=== PATIENT | female | born 1985 | race Asian ===

== ENCOUNTER 2018-05-02 17:34 | Emergency (ER) | payer SELFPAY ==
[~2018-05-02] VITALS: Ht 162.6 cm; Wt 54.5 kg
[2018-05-02] MEDS ORDERED: KETOROLAC TROMETHAMINE 30 MG/ML VIAL IM ONE (18:30)
[2018-05-02 19:32] VITALS: BP 123/74
== END 2018-05-02 19:39 | disposition home or self-care (01) ==
LOC: EMS 17:34
DX: S13.4XXA Sprain of ligaments of cervical spine, initial encounter (principal); M54.6 Pain in thoracic spine; V49.40XA Driver injured in collision with unspecified motor vehicles in traffic accident, initial encounter; Y93.89 Activity, other specified; Y92.89 Other specified places as the place of occurrence of the external cause; Y99.8 Other external cause status
CPT/HCPCS: 96372; 99283; J1885